=== PATIENT | female | born 1940 | race Caucasian/White ===

== ENCOUNTER 2017-07-22 22:15 | Emergency (ER) | payer MEDICARE ==
[2017-07-22] MEDS ORDERED: Ketorolac INJ* 30 MG/ML 1 ML VIAL IM ONE (23:35)
[2017-07-22] MEDS ORDERED: HYDROcodone/ACETAMIN 5-325 MG* 1 TAB PO ONE (23:55)
--- NOTE | 2017-07-23 00:02 | ED ---
Upper Extremity Pain - HPI Summary HPI Summary: 77F presents with left shoulder pain today. She was raking the leaves. The pain is greatest on the anterior shoulder. It hurts to touch the area or put any pressure on it. The pain does not radiate anywhere. She denies any chest pain or SOB. She denies any numbness or tingling. She has limited ROM of the shoulder with pain. She is not able to raise her arm without extreme pain for the top of her head. She took some Tylenol without relief. she has no cardiac history besides HTN. - History of Current Complaint Chief Complaint: EDExtremityUpper Stated Complaint: LT SHOULDER PAIN Time Seen by Provider: 07/22/17 23:11 - Allergies/Home Medications Allergies/Adverse Reactions: Allergies Allergy/AdvReac Type Severity Reaction Status Date / Time Clindamycin Allergy Severe Diarrhea Verified 06/03/15 19:11 [From Cleocin HCl] PMH/Surg Hx/FS Hx/Imm Hx Endocrine/Hematology History: Denies: Hx Anticoagulant Therapy Cardiovascular History: Reports: Hx Hypertension Denies: Hx Myocardial Infarction, Hx Pacemaker/ICD - Surgical History Surgery Procedure, Year, and Place: Tonsilectomy 10 years old. left breast lobectomy- benign 1975. Vein stripping right leg r/t blood clot 1971. breast abscess right breast. cyst removal left breast. partial hysterectomy 1994. Appendectomy 1994. Cholecystectomy 1994 Infectious Disease History: No Infectious Disease History: Denies: Hx Clostridium Difficile, Hx Hepatitis, Hx Human Immunodeficiency Virus (HIV), Hx of Known/Suspected MRSA, Hx Shingles, Hx Tuberculosis, Hx Known/ Suspected VRE, Hx Known/Suspected VRSA, History Other Infectious Disease, Traveled Outside the [place] in Last 30 Days - Family History Known Family History: Positive: Hypertension - Social History Alcohol Use: None Substance Use Type: Reports: None Smoking Status (MU): Former Smoker Type: Cigarettes Have You Smoked in the Last Year: No Review of Systems Negative: Fever Negative: Chest Pain Negative: Shortness Of Breath Positive: Myalgia - left shoulder pain All Other Systems Reviewed And Are Negative: Yes Physical Exam Triage Information Reviewed: Yes Vital Signs On Initial Exam: Initial Vitals Temp Pulse Resp BP Pulse Ox 98.6 F 95 14 162/78 96 07/22/17 22:18 07/22/17 22:18 07/22/17 22:18 07/22/17 22:18 07/22/17 22:18 Vital Signs Reviewed: Yes Appearance: Positive: Well-Appearing Skin: Positive: Warm, Dry Head/Face: Positive: Normal Head/Face Inspection Eyes: Positive: Normal, Conjunctiva Clear Respiratory/Lung Sounds: Positive: Clear to Auscultation, Breath Sounds Present Cardiovascular: Positive: Normal, RRR Musculoskeletal: Positive: Limited @ - left shoulder, Other - tenderness over anterior shoulder left, neg yearsons, unable to raise arm above 90 degree and unable to move arm behind back due to pain, good pulses, 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 - Radiology shoulder Xray Interpretation: No Acute Changes Radiology Interpretation Completed By: ED Physician Course/Dx - Course Course Of Treatment: 77F presents with left shoulder pain today. She was raking the leaves. The pain is greatest on the anterior shoulder. It hurts to touch the area or put any pressure on it. The pain does not radiate anywhere. She denies any chest pain or SOB. She denies any numbness or tingling. She has limited ROM of the shoulder with pain. She is not able to raise her arm without extreme pain for the top of her head. She took some Tylenol without relief. she has no cardiac history besides HTN. on exam tender over anterior shoulder. pain with drop arm. unable to raise arm above 90 degrees. shoulder xray shows arthritis changes as read by me. will give pain medication as is in great amount of pain. will have follow up with ortho if no improvement. - Diagnoses Differential Diagnosis/HQI/PQRI: Positive: Fracture (Closed), Strain, Sprain Provider Diagnoses: Left shoulder pain Discharge - Discharge Plan Condition: Good Disposition: HOME Prescriptions: HYDROcodone/ACETAMIN 5-325 MG* [Frederic 5-325 TAB*] 1 tab PO Q6H PRN #8 tab MDD 4 PRN Reason: Pain - Severe Patient Education Materials: Shoulder Pain (ED) Referrals: John Nye MD [Medical Doctor] - Norma Magaña MD [Primary Care Provider] - Additional Instructions: Take Tylenol every 6 hours as needed for pain, use narcotic for break through pain Ice/heat Can rest for one day and then need to do range of motion activities for shoulder Follow up with ortho Return to ED if develop any new or worsening symptoms
[2017-07-23 00:06] VITALS: BP 150/80
--- NOTE | 2017-07-23 07:39 | RAD ---
HISTORY: Left shoulder pain COMPARISONS: None VIEWS: 5, Frontal internal rotation, external rotation, outlet, and axillary views of the left shoulder FINDINGS: BONE DENSITY: Normal. BONES: There is no displaced fracture. JOINTS: There is osteoarthritis of the AC joint. ALIGNMENT: There is no dislocation. SOFT TISSUES: There is soft tissue calcification along the greater tuberosity of the left humerus. OTHER FINDINGS: None. IMPRESSION: 1. OSTEOARTHRITIS. 2. SOFT TISSUE CALCIFICATIONS SUGGESTIVE OF CALCIFIC TENDINOPATHY. 3. NO ACUTE OSSEOUS INJURY. IF SYMPTOMS PERSIST, RECOMMEND REPEAT IMAGING
== END 2017-07-23 00:13 | disposition home or self-care (01) ==
LOC: ED 22:15
DX: M25.512 Pain in left shoulder (principal); Z87.891 Personal history of nicotine dependence; I10 Essential (primary) hypertension
CPT/HCPCS: 96372; 99282; J1885

== ENCOUNTER 2019-02-27 11:19 | Day surgery (SDC) | payer MEDICARE ==
[~2019-02-27 11:19] MED LIST: Buffered Lidocaine 1% SYRIN* 1 ML/SYRINGE INTRADERM ONE
[2019-02-27] MEDS ORDERED: Ketorolac 0.5% OPHTH (NF) 0.5 % 5 ML BTL ONE (12:18)
[2019-02-27] MEDS ORDERED: Phenylephrine OPHTH SOL 2.5%* 2 ML ONE (12:18)
[2019-02-27] MEDS ORDERED: acetaZOLAMIDE TAB* 250 MG ONE (12:18)
[2019-02-27] MEDS ORDERED: Neomycin/Polymy/Dex OPTH.SUSP* MAXITROL 0.1% 5 ML ONE (12:18)
[2019-02-27] MEDS ORDERED: Cyclopentolate 1% OPTH.SOL* 2 ML BTL ONE (12:18)
[2019-02-27] MEDS ORDERED: Lidocaine 1%* 5 ML VIAL ONE (12:18)
[2019-02-27] MEDS ORDERED: Povidone Iodine 5% OPTH* 30 ML BTL ONE (12:18)
[2019-02-27] MEDS ORDERED: Proparacaine 0.5% OPHTH.SOL* 15 ML BTL ONE (12:18)
[2019-02-27] MEDS ORDERED: Lidocaine 2% EPI 1:200000 MPF*10-20 ML VIAL ONE (12:18)
[2019-02-27] MEDS ORDERED: Midazolam* 1 MG/ML 2 ML VIAL (2 MG) ONE (14:03)
[2019-02-27 15:07] VITALS: BP 140/76
--- NOTE | 2019-02-27 20:35 | OP ---
DATE OF OPERATION: 02/27/19 - [facility] DATE OF : 44 SURGEON: Art Rand M.D. PREOPERATIVE DIAGNOSIS: Cataract, right eye. POSTOPERATIVE DIAGNOSIS: Cataract, right eye. OPERATIVE PROCEDURE: Extracapsular cataract extraction with intraocular lens implant, right eye. DESCRIPTION OF PROCEDURE: The patient was brought to the operating room after being given 1/2% Alcaine with epinephrine drops in the preoperative area. The eye was prepped and draped in the usual sterile fashion. Sterile drape and eyelid speculum were placed. Again, topical 1/2% Alcaine with epinephrine was given. A paracentesis incision was made at the 9 o'clock position with the No.75 blade. Clear cornea incision 2.2 x 2.2-mm was created at the 12 o'clock position starting at the anterior limbus using the 2.2-mm keratome. The anterior chamber was irrigated with 0.4 mL of 1% non-preservative intracameral lidocaine and filled with DisCoVisc. A capsulorrhexis was completed using the cystotome and the Utrata forceps. Hydrodissection was performed with balanced salt solution. The lens nucleus was removed with the Phacoemulsification handpiece without incident. Cortex was removed with the irrigation-aspiration handpiece. The capsular bag was re-inflated using DisCoVisc and an [id number] implant was inserted with the shooter. The irrigation-aspiration handpiece was used to remove all residual DisCoVisc. The eye was refilled with balanced salt solution and the wound checked and found to be watertight. Topical Maxitrol drops were given. [id number]/[facility] #: [id number] [facility]
== END 2019-02-27 14:55 | disposition home or self-care (01) ==
LOC: OREAST 11:19
PROVIDERS: ATTEND Specialist
DX: H25.811 Combined forms of age-related cataract, right eye (principal); H35.3132 Nonexudative age-related macular degeneration, bilateral, intermediate dry stage; Z87.891 Personal history of nicotine dependence; I10 Essential (primary) hypertension; M81.0 Age-related osteoporosis without current pathological fracture; E78.2 Mixed hyperlipidemia; I34.0 Nonrheumatic mitral (valve) insufficiency; K21.9 Gastro-esophageal reflux disease without esophagitis
CPT/HCPCS: A9270-GY; J2250; V2632

== ENCOUNTER 2019-03-06 07:01 | Day surgery (SDC) | payer MEDICARE ==
[~2019-03-06 07:01] MED LIST changes: +Acetaminophen TAB* 325 MG PO PRN
[2019-03-06] MEDS ORDERED: Midazolam* 1 MG/ML 5 ML VIAL (5 MG) ONE (08:04)
[2019-03-06 08:45] VITALS: BP 146/69
--- NOTE | 2019-03-06 09:04 | OP ---
OPERATIVE NOTE: DATE OF OPERATION: 03/06/19 DATE OF : 44 SURGEON: Art Rand MD. PREOPERATIVE DIAGNOSIS: Cataract, left eye. POSTOPERATIVE DIAGNOSIS: Cataract, left eye. OPERATIVE PROCEDURE: Extracapsular cataract extraction with intraocular lens implant, left eye. PROCEDURE: The patient was brought to the operating room after being given 1/2% Alcaine with epineph rine drops in the preoperative area. The eye was prepped and draped in the usual sterile fashion. S terile drape and eyelid speculum were placed. Again, topical 1/2% Alcaine with epinephrine was given . A paracentesis incision was made at the 3 o'clock position with the No.75 blade. Clear cornea inc ision 2.2 x 2.2 mm was created at the 6 o'clock position starting at the anterior limbus using the 2. 2 mm keratome. The anterior chamber was irrigated with 0.4 mL of 1% non-preservative intracameral li docaine and filled with DisCoVisc. A capsulorrhexis was completed using the cystotome and the Utrata forceps. Hydrodissection was performed with balanced salt solution. The lens nucleus was removed wi th the Phacoemulsification handpiece without incident. Cortex was removed with the irrigation-aspira tion handpiece. The capsular bag was re-inflated using DisCoVisc and an [id number] implant was insert ed with the shooter. The irrigation-aspiration handpiece was used to remove all residual DisCoVisc. The eye was refilled with balanced salt solution and the wound checked and found to be watertight. Topical Maxitrol drops were given. [id number]/[facility] #: [id number]
[2019-03-06] MEDS ORDERED: Lidocaine 2% EPI 1:200000 MPF*10-20 ML VIAL ONE (09:55)
[2019-03-06] MEDS ORDERED: Neomycin/Polymy/Dex OPTH.SUSP* MAXITROL 0.1% 5 ML ONE (09:55)
[2019-03-06] MEDS ORDERED: Ketorolac 0.5% OPHTH (NF) 0.5 % 5 ML BTL ONE (09:55)
[2019-03-06] MEDS ORDERED: Phenylephrine OPHTH SOL 2.5%* 2 ML ONE (09:55)
[2019-03-06] MEDS ORDERED: Povidone Iodine 5% OPTH* 30 ML BTL ONE (09:55)
[2019-03-06] MEDS ORDERED: Lidocaine 1%* 5 ML VIAL ONE (09:55)
[2019-03-06] MEDS ORDERED: Cyclopentolate 1% OPTH.SOL* 2 ML BTL ONE (09:55)
[2019-03-06] MEDS ORDERED: acetaZOLAMIDE TAB* 250 MG ONE (09:55)
[2019-03-06] MEDS ORDERED: Proparacaine 0.5% OPHTH.SOL* 15 ML BTL ONE (09:56)
== END 2019-03-06 08:47 | disposition home or self-care (01) ==
LOC: OREAST 07:01
PROVIDERS: ATTEND Specialist
DX: H25.812 Combined forms of age-related cataract, left eye (principal); H35.3132 Nonexudative age-related macular degeneration, bilateral, intermediate dry stage; I10 Essential (primary) hypertension; K21.9 Gastro-esophageal reflux disease without esophagitis; M19.90 Unspecified osteoarthritis, unspecified site; E78.2 Mixed hyperlipidemia; I34.0 Nonrheumatic mitral (valve) insufficiency; Z87.891 Personal history of nicotine dependence
CPT/HCPCS: A9270-GY; J2250; V2632

== ENCOUNTER 2020-08-19 13:45 | Inpatient (IN) ==
[2020-08-19] MEDS ORDERED: Senna TAB 8.6 mg TAB PO PRN (17:15)
[2020-08-19] MEDS ORDERED: SIMETHICONE 125 MG PO PRN (17:42)
[2020-08-19] MEDS: CMC: Lactase Enzyme (NF) 3,000 UNIT TAB PO SCH (18:09)
[2020-08-19] MEDS: Nitrofurantoin (macrocrystals) 50 mg CAP PO SCH (19:13)
[2020-08-19] MEDS ORDERED: Heparin 5000 UNITS/ML 1 mL VIAL SUBCUT SCH (21:00)
[2020-08-20] MEDS: CMC: Lactase Enzyme (NF) 3,000 UNIT TAB PO SCH ×3 (09:49→18:22)
[2020-08-20] MEDS: CMC: Fenofibrate 145 mg TAB (NF) PO SCH (09:49)
[2020-08-20] MEDS: Enoxaparin 40 MG/0.4 ML SYR SUBCUT SCH (13:48)
[2020-08-20] MEDS: Nitrofurantoin (macrocrystals) 50 mg CAP PO SCH (20:25)
[2020-08-21 04:35] LABS: Hematocrit 28 % (35-47); Hemoglobin 9.4 g/dL (12.0-16.0); Mean Corpuscular HGB Conc 34 g/dL (31-36); Mean Corpuscular Hemoglobin 28 pg (27-31); Mean Corpuscular Volume 84 fL (80-97); Platelet Count 631 10^3/uL (150-450); Red Blood Count 3.36 10^6 /uL (3.70-4.87); Red Cell Distribution Width 14 % (10-15); White Blood Count 14.7 10^3/uL (3.5-10.8)
[2020-08-21 04:54] LABS: Albumin 3.1 g/dL (3.2-5.2); Albumin/Globulin Ratio 1.1 (1-3); BUN/Creatinine Ratio 27.3 (8-20); Calcium 8.8 mg/dL (8.6-10.3); EGFR African American 129.3 (>60); EGFR Non-African American 106.9 (>60); Globulin 2.7 g/dL (2-4); Potassium 3.9 mmol/L (3.5-5.0); Total Bilirubin 0.9 mg/dL (0.2-1.0); Total Protein 5.8 g/dL (6.4-8.9)
[2020-08-21 06:13] LABS: ABS Basophils 0.1 10^3/ul (0-0.2); ABS Eosinophils 0.6 10^3/ul (0-0.6); ABS Lymphocytes 1.4 10^3/ul (1.0-4.8); ABS Monocytes 1.7 10^3/ul (0-0.8); ABS Neutrophils 10.9 10^3/ul (1.5-7.7); Eosinophil % 4.1 %; Lymphocyte % 9.3 %
[2020-08-21] MEDS: CMC: Lactase Enzyme (NF) 3,000 UNIT TAB PO SCH ×3 (07:27→16:33)
[2020-08-21] MEDS: CMC: Fenofibrate 145 mg TAB (NF) PO SCH (09:13)
[2020-08-21] MEDS: Enoxaparin 40 MG/0.4 ML SYR SUBCUT SCH (14:43)
[2020-08-21] MEDS: Nitrofurantoin (macrocrystals) 50 mg CAP PO SCH (20:03)
[2020-08-22] MEDS: CMC: Lactase Enzyme (NF) 3,000 UNIT TAB PO SCH ×3 (08:08→17:09)
[2020-08-22] MEDS: CMC: Fenofibrate 145 mg TAB (NF) PO SCH (08:12)
[2020-08-22] MEDS: Enoxaparin 40 MG/0.4 ML SYR SUBCUT SCH (12:40)
[2020-08-22] MEDS: Psyllium PAK PO SCH (12:40)
[2020-08-22] MEDS: Nitrofurantoin (macrocrystals) 50 mg CAP PO SCH (20:04)
[2020-08-23] MEDS: CMC: Lactase Enzyme (NF) 3,000 UNIT TAB PO SCH ×3 (08:12→17:08)
[2020-08-23] MEDS: CMC: Fenofibrate 145 mg TAB (NF) PO SCH (08:15)
[2020-08-23] MEDS: Psyllium PAK PO SCH (08:16)
[2020-08-23] MEDS: Enoxaparin 40 MG/0.4 ML SYR SUBCUT SCH (12:35)
[2020-08-23] MEDS: Nitrofurantoin (macrocrystals) 50 mg CAP PO SCH (21:41)
[2020-08-24] MEDS: CMC: Lactase Enzyme (NF) 3,000 UNIT TAB PO SCH ×3 (07:35→16:48)
[2020-08-24] MEDS: CMC: Fenofibrate 145 mg TAB (NF) PO SCH (07:37)
[2020-08-24] MEDS: Psyllium PAK PO SCH (07:38)
[2020-08-24 10:17] LABS: ABS Basophils 0.1 10^3/ul (0-0.2); ABS Eosinophils 0.2 10^3/ul (0-0.6); ABS Lymphocytes 1.2 10^3/ul (1.0-4.8); ABS Monocytes 0.8 10^3/ul (0-0.8); ABS Neutrophils 6.8 10^3/ul (1.5-7.7); Eosinophil % 2.6 %; Hematocrit 30 % (35-47); Hemoglobin 10.1 g/dL (12.0-16.0); Lymphocyte % 13.2 %; Mean Corpuscular HGB Conc 34 g/dL (31-36); Mean Corpuscular Hemoglobin 28 pg (27-31); Mean Corpuscular Volume 84 fL (80-97); Mean Platelet Volume 8.2 fL (7.4-10.4); Nucleated Red Blood Cells % 0.1; Platelet Count 626 10^3/uL (150-450); Red Cell Distribution Width 15 % (10-15); White Blood Count 9.1 10^3/uL (3.5-10.8)
[2020-08-24] MEDS: Enoxaparin 40 MG/0.4 ML SYR SUBCUT SCH (13:00)
[2020-08-24] MEDS ORDERED: Ondansetron ODT 4 mg TAB 4 MG TAB PO PRN (16:33)
[2020-08-24] MEDS ORDERED: Magnesium Hydroxide LIQ 30 ML UDC PO PRN (16:33)
[2020-08-24] MEDS: Nitrofurantoin (macrocrystals) 50 mg CAP PO SCH (20:57)
[2020-08-25] MEDS: CMC: Lactase Enzyme (NF) 3,000 UNIT TAB PO SCH ×3 (07:32→17:03)
[2020-08-25] MEDS: Psyllium PAK PO SCH (07:34)
[2020-08-25] MEDS: CMC: Fenofibrate 145 mg TAB (NF) PO SCH (07:34)
[2020-08-25] MEDS: Enoxaparin 40 MG/0.4 ML SYR SUBCUT SCH (12:51)
[2020-08-25] MEDS: Nitrofurantoin (macrocrystals) 50 mg CAP PO SCH (20:59)
[2020-08-26] MEDS: CMC: Lactase Enzyme (NF) 3,000 UNIT TAB PO SCH ×3 (07:20→18:06)
[2020-08-26] MEDS: Psyllium PAK PO SCH (07:23)
[2020-08-26] MEDS: CMC: Fenofibrate 145 mg TAB (NF) PO SCH (07:58)
[2020-08-26] MEDS: Enoxaparin 40 MG/0.4 ML SYR SUBCUT SCH (12:29)
[2020-08-26] MEDS: Nitrofurantoin (macrocrystals) 50 mg CAP PO SCH (20:36)
[2020-08-26] MEDS ORDERED: diPHENhydraMINE 25 mg TAB PO ONE (23:00)
[2020-08-27 05:19] VITALS: BP 146/76
[2020-08-27] MEDS: CMC: Lactase Enzyme (NF) 3,000 UNIT TAB PO SCH ×2 (08:21→13:05)
[2020-08-27] MEDS: CMC: Fenofibrate 145 mg TAB (NF) PO SCH (08:23)
[2020-08-27] MEDS: Psyllium PAK PO SCH (08:23)
[2020-08-27] MEDS: Enoxaparin 40 MG/0.4 ML SYR SUBCUT SCH (13:15)
== END 2020-08-27 17:09 | disposition home health service (06) ==
LOC: PMRU 16:52
PROVIDERS: ADMIT Physical Medicine & Rehabilitation; ATTEND Physical Medicine & Rehabilitation

== ENCOUNTER 2020-10-27 13:08 | Inpatient (IN) ==
[~2020-10-27 13:08] MED LIST changes: -Acetaminophen TAB* 325 MG PO PRN; -Buffered Lidocaine 1% SYRIN* 1 ML/SYRINGE INTRADERM ONE; +ceFAZolin 1 GM X 3 DOSES POST-OP Q8H (AddVan) IVPB SCH
[2020-10-27] MEDS ORDERED: Morphine 4 MG/ML VIAL (1 ml) IV ONE ×2 (13:25→15:57)
[2020-10-27 13:50] LABS: ABS Basophils 0.1 10^3/ul (0-0.2); ABS Eosinophils 0.1 10^3/ul (0-0.6); ABS Lymphocytes 1.9 10^3/ul (1.0-4.8); ABS Monocytes 0.6 10^3/ul (0-0.8); Eosinophil % 1.4 %; Hematocrit 44 % (35-47); Hemoglobin 14.4 g/dL (12.0-16.0); Lymphocyte % 19.3 %; Mean Corpuscular HGB Conc 33 g/dL (31-36); Mean Corpuscular Hemoglobin 27 pg (27-31); Mean Corpuscular Volume 81 fL (80-97); Mean Platelet Volume 8.7 fL (7.4-10.4); Platelet Count 350 10^3/uL (150-450); Red Blood Count 5.43 10^6 /uL (3.70-4.87); Red Cell Distribution Width 17 % (10-15); White Blood Count 9.7 10^3/uL (3.5-10.8)
[2020-10-27 14:04] LABS: INR 1.07 (0.82-1.09)
[2020-10-27 14:13] LABS: Albumin 4.7 g/dL (3.2-5.2); Albumin/Globulin Ratio 1.4 (1-3); BUN/Creatinine Ratio 23.1 (8-20); Calcium 10.4 mg/dL (8.6-10.3); EGFR African American 72.3 (>60); EGFR Non-African American 59.8 (>60); Globulin 3.4 g/dL (2-4); Potassium 4.2 mmol/L (3.5-5.0); Total Bilirubin 0.3 mg/dL (0.2-1.0); Total Protein 8.1 g/dL (6.4-8.9)
[2020-10-27] MEDS ORDERED: NS 0.9% 1000 ml BAG 1,000 ML IV SCH (16:15)
[2020-10-27 16:35] LABS: Urine Appearance Clear; Urine Bilirubin Negative (Negative); Urine Blood Negative (Negative); Urine Color Straw; Urine Glucose Negative (Negative); Urine Ketones Negative (Negative); Urine Nitrite Negative (Negative); Urine Protein Negative (Negative); Urine Specific Gravity 1.008 (1.010-1.030); Urine Urobilinogen Negative (Negative)
[2020-10-27] MEDS ORDERED: Propofol 10 MG/ML 20 ML BTL ONE (17:47)
[2020-10-27] MEDS ORDERED: Lidocaine 2% PF 5 ML VIAL ONE (17:47)
[2020-10-27] MEDS ORDERED: fentaNYL 250 mcg/5 ml 50 MCG/ML 5 ml VIAL (250 MCG) ONE (17:48)
[2020-10-27] MEDS ORDERED: Bupivacaine 0.5% SDV PF 30ML VIAL ONE (17:55)
[2020-10-27] MEDS ORDERED: Midazolam 2 mg/2 ml VIAL 1 mg/ml 2 ml VIAL (2 mg) ONE (17:55)
[2020-10-27] MEDS ORDERED: ceFAZolin 2 GM PREMIX 2 GM/50 ML BAG ONE (18:28)
[2020-10-27] MEDS ORDERED: Ketamine HCL 50 mg/ml 10 ml VIAL (500 MG) ONE (18:54)
[2020-10-27] MEDS ORDERED: Sodium Citrate/Citric Acid LIQ 15 ML UDC ONE (18:55)
[2020-10-27] MEDS ORDERED: Sterile Water for Inj 10 ML ONE (18:55)
[2020-10-27] MEDS ORDERED: Phenylephrine 40 mcg/mL 10mL (400mcg) SYRINGE ONE (18:56)
[2020-10-27] MEDS ORDERED: Naloxone 0.4 mg VIAL 0.4 mg/ml 1 ml VIAL IV PRN (20:20)
[2020-10-27] MEDS ORDERED: fentaNYL 100 mcg/2 ml 50 MCG/ML VIAL IV PRN (20:20)
[2020-10-27] MEDS ORDERED: Ondansetron 4 mg VIAL 2 MG/ML 2 ml VIAL IV PRN (20:20)
[2020-10-27] MEDS ORDERED: Acetaminophen IV 1 GM/100ML 1,000 MG/100 ML VIAL IVPB PRN (20:20)
[2020-10-27 21:06] LABS: Hematocrit 38 % (35-47); Hemoglobin 12.7 g/dL (12.0-16.0)
[2020-10-28] MEDS ORDERED: HYDROcodone/ACETAMIN 5/325 mg TAB PO PRN ×2 (02:17→02:18)
[2020-10-28] MEDS: ceFAZolin 1 GM X 3 DOSES POST-OP Q8H (AddVan) IVPB SCH ×3 (03:09→20:05)
[2020-10-28 06:20] LABS: Hematocrit 37 % (35-47); Hemoglobin 11.9 g/dL (12.0-16.0); Mean Corpuscular HGB Conc 32 g/dL (31-36); Mean Corpuscular Hemoglobin 26 pg (27-31); Mean Corpuscular Volume 81 fL (80-97); Mean Platelet Volume 8.4 fL (7.4-10.4); Platelet Count 296 10^3/uL (150-450); Red Blood Count 4.57 10^6 /uL (3.70-4.87); Red Cell Distribution Width 17 % (10-15); White Blood Count 12.1 10^3/uL (3.5-10.8)
[2020-10-28 06:39] LABS: BUN/Creatinine Ratio 20.3 (8-20); Calcium 8.7 mg/dL (8.6-10.3); EGFR African American 99.6 (>60); EGFR Non-African American 82.3 (>60)
[2020-10-28] MEDS ORDERED: DILTIAZEM HCL 300 MG PO SCH (09:00)
[2020-10-28] MEDS ORDERED: Nitrofurantoin (macrocrystals) 50 mg CAP PO SCH (09:00)
[2020-10-28] MEDS: Nitrofurantoin (macrocrystals) 50 mg CAP PO SCH (09:57)
[2020-10-28] MEDS: Enoxaparin 40 MG/0.4 ML SYR SUBCUT SCH (09:58)
[2020-10-28] MEDS ORDERED: Magnesium Hydroxide LIQ 30 ML UDC PO PRN (13:33)
[2020-10-28] MEDS ORDERED: Senna TAB 8.6 mg TAB PO PRN (13:33)
[2020-10-28] MEDS ORDERED: Polyethylene Glycol 3350 17 GM PACKET PO PRN (13:33)
[2020-10-28] MEDS ORDERED: Ondansetron 4 mg VIAL 2 MG/ML 2 ml VIAL IV PRN (19:56)
[2020-10-28] MEDS ORDERED: diPHENhydraMINE 25 mg TAB PO PRN (21:08)
[2020-10-29 06:22] LABS: Hematocrit 33 % (35-47); Hemoglobin 10.9 g/dL (12.0-16.0); Mean Platelet Volume 8.7 fL (7.4-10.4); Platelet Count 246 10^3/uL (150-450)
[2020-10-29] MEDS: Enoxaparin 40 MG/0.4 ML SYR SUBCUT SCH (08:38)
[2020-10-29] MEDS: Nitrofurantoin (macrocrystals) 50 mg CAP PO SCH (08:43)
[2020-10-30] MEDS: Calcium Carb (TUMS) 500 mg CHEW TAB PO PRN ×3 (01:42→17:53)
[2020-10-30 05:48] LABS: Hematocrit 33 % (35-47); Hemoglobin 10.7 g/dL (12.0-16.0); Mean Platelet Volume 8.7 fL (7.4-10.4); Platelet Count 245 10^3/uL (150-450)
[2020-10-30] MEDS: Enoxaparin 40 MG/0.4 ML SYR SUBCUT SCH (09:32)
[2020-10-30] MEDS: Nitrofurantoin (macrocrystals) 50 mg CAP PO SCH ×2 (11:57→20:47)
[2020-10-31 05:58] LABS: Hematocrit 31 % (35-47); Hemoglobin 10.2 g/dL (12.0-16.0); Mean Platelet Volume 8.6 fL (7.4-10.4); Platelet Count 292 10^3/uL (150-450)
[2020-10-31] MEDS: Enoxaparin 40 MG/0.4 ML SYR SUBCUT SCH (09:31)
[2020-10-31] MEDS: Nitrofurantoin (macrocrystals) 50 mg CAP PO SCH (21:08)
[2020-11-01 06:44] LABS: Hematocrit 33 % (35-47); Hemoglobin 10.7 g/dL (12.0-16.0); Mean Platelet Volume 8.1 fL (7.4-10.4); Platelet Count 369 10^3/uL (150-450)
[2020-11-01] MEDS: Enoxaparin 40 MG/0.4 ML SYR SUBCUT SCH (08:25)
[2020-11-01] MEDS: Nitrofurantoin (macrocrystals) 50 mg CAP PO SCH (20:19)
[2020-11-02 05:57] LABS: Hematocrit 31 % (35-47); Hemoglobin 10.1 g/dL (12.0-16.0); Mean Platelet Volume 7.9 fL (7.4-10.4); Platelet Count 394 10^3/uL (150-450)
[2020-11-02 07:44] VITALS: BP 121/62
[2020-11-02] MEDS: Enoxaparin 40 MG/0.4 ML SYR SUBCUT SCH (09:49)
== END 2020-11-02 10:45 | DRG 481 ==
LOC: ED 13:08 → AA 16:12 → ED 17:47 → SSU 22:57
PROVIDERS: ADMIT Surgery; ATTEND Internal Medicine

== ENCOUNTER 2020-11-02 08:39 | Inpatient (IN) ==
[2020-11-02] MEDS ORDERED: Senna TAB 8.6 mg TAB PO PRN (08:44)
[2020-11-02] MEDS ORDERED: Magnesium Hydroxide LIQ 30 ML UDC PO PRN (08:44)
[2020-11-02] MEDS ORDERED: Al Hydrox/Mg Hydrox/Simet LIQ 30 ML UDC PO PRN (08:44)
[2020-11-02] MEDS: Nitrofurantoin (macrocrystals) 50 mg CAP PO SCH (20:01)
[2020-11-03 05:45] LABS: ABS Basophils 0.1 10^3/ul (0-0.2); ABS Eosinophils 0.3 10^3/ul (0-0.6); ABS Lymphocytes 1.9 10^3/ul (1.0-4.8); ABS Monocytes 0.9 10^3/ul (0-0.8); ABS Neutrophils 5.1 10^3/ul (1.5-7.7); Eosinophil % 4.2 %; Hematocrit 32 % (35-47); Hemoglobin 10.5 g/dL (12.0-16.0); Lymphocyte % 22.6 %; Mean Corpuscular HGB Conc 33 g/dL (31-36); Mean Corpuscular Hemoglobin 27 pg (27-31); Mean Corpuscular Volume 80 fL (80-97); Nucleated Red Blood Cells % 0.1; Platelet Count 431 10^3/uL (150-450); Red Blood Count 3.93 10^6 /uL (3.70-4.87); Red Cell Distribution Width 17 % (10-15); White Blood Count 8.3 10^3/uL (3.5-10.8)
[2020-11-03 06:10] LABS: Albumin 3.5 g/dL (3.2-5.2); Albumin/Globulin Ratio 1.3 (1-3); BUN/Creatinine Ratio 32.1 (8-20); Calcium 9.1 mg/dL (8.6-10.3); EGFR African American 126.7 (>60); EGFR Non-African American 104.7 (>60); Globulin 2.8 g/dL (2-4); Total Bilirubin 0.5 mg/dL (0.2-1.0); Total Protein 6.3 g/dL (6.4-8.9)
[2020-11-03] MEDS: Enoxaparin 40 MG/0.4 ML SYR SUBCUT SCH (08:07)
[2020-11-03] MEDS: Nitrofurantoin (macrocrystals) 50 mg CAP PO SCH (20:42)
[2020-11-04] MEDS: Enoxaparin 40 MG/0.4 ML SYR SUBCUT SCH (08:10)
[2020-11-04] MEDS: Nitrofurantoin (macrocrystals) 50 mg CAP PO SCH (22:00)
[2020-11-05] MEDS: Enoxaparin 40 MG/0.4 ML SYR SUBCUT SCH (09:55)
[2020-11-05] MEDS: Nitrofurantoin (macrocrystals) 50 mg CAP PO SCH (21:20)
[2020-11-06 05:56] LABS: ABS Basophils 0.2 10^3/ul (0-0.2); ABS Eosinophils 0.3 10^3/ul (0-0.6); ABS Lymphocytes 1.9 10^3/ul (1.0-4.8); ABS Monocytes 0.7 10^3/ul (0-0.8); ABS Neutrophils 4.3 10^3/ul (1.5-7.7); Eosinophil % 4.6 %; Hematocrit 33 % (35-47); Hemoglobin 10.7 g/dL (12.0-16.0); Lymphocyte % 25.9 %; Mean Corpuscular HGB Conc 33 g/dL (31-36); Mean Corpuscular Hemoglobin 27 pg (27-31); Mean Corpuscular Volume 81 fL (80-97); Mean Platelet Volume 7.6 fL (7.4-10.4); Nucleated Red Blood Cells % 0.1; Platelet Count 516 10^3/uL (150-450); Red Blood Count 4.05 10^6 /uL (3.70-4.87); Red Cell Distribution Width 17 % (10-15); White Blood Count 7.5 10^3/uL (3.5-10.8)
[2020-11-06 06:11] LABS: Albumin 3.5 g/dL (3.2-5.2); Albumin/Globulin Ratio 1.2 (1-3); BUN/Creatinine Ratio 23.1 (8-20); Calcium 8.8 mg/dL (8.6-10.3); EGFR African American 106.7 (>60); EGFR Non-African American 88.2 (>60); Globulin 2.9 g/dL (2-4); Potassium 4.2 mmol/L (3.5-5.0); Total Bilirubin 0.4 mg/dL (0.2-1.0); Total Protein 6.4 g/dL (6.4-8.9)
[2020-11-06] MEDS: Enoxaparin 40 MG/0.4 ML SYR SUBCUT SCH (07:41)
[2020-11-06] MEDS: Nitrofurantoin (macrocrystals) 50 mg CAP PO SCH (21:08)
[2020-11-07] MEDS: Enoxaparin 40 MG/0.4 ML SYR SUBCUT SCH (10:08)
[2020-11-07] MEDS: Calcium Carb (TUMS) 500 mg CHEW TAB PO PRN ×2 (16:04→22:09)
[2020-11-07] MEDS: Nitrofurantoin (macrocrystals) 50 mg CAP PO SCH (22:09)
[2020-11-08] MEDS: Enoxaparin 40 MG/0.4 ML SYR SUBCUT SCH (09:24)
[2020-11-08] MEDS: Calcium Carb (TUMS) 500 mg CHEW TAB PO PRN (17:04)
[2020-11-08] MEDS: Nitrofurantoin (macrocrystals) 50 mg CAP PO SCH ×2 (20:53→22:09)
[2020-11-09] MEDS: Enoxaparin 40 MG/0.4 ML SYR SUBCUT SCH (07:23)
[2020-11-09] MEDS: Nitrofurantoin (macrocrystals) 50 mg CAP PO SCH (21:03)
[2020-11-10 06:38] VITALS: BP 137/58
[2020-11-10] MEDS: Enoxaparin 40 MG/0.4 ML SYR SUBCUT SCH (09:43)
== END 2020-11-10 16:11 | disposition home health service (06) | DRG 560 ==
LOC: PMRU 10:46
PROVIDERS: ADMIT Physical Medicine & Rehabilitation; ATTEND Physical Medicine & Rehabilitation